=== PATIENT | male | born 1955 | race Caucasian/White ===

== ENCOUNTER 2016-12-21 17:24 | Emergency (ER) | payer BC ==
[2016-12-21] MEDS ORDERED: MORPHINE SULFATE 4 MG/ML SYRINGE IV STA (17:36)
--- NOTE | 2016-12-21 17:46 | ED ---
General Adult HPI - General Stated complaint: Back Pain Time Seen by Provider: 12/21/16 17:27 Source: RN notes reviewed - History of Present Illness Initial comments: 61 yo male presents to the ER with cc of right hip and low back pain after a fall. Patient states that he went to stand up from the chair he felt a sharp back pain and then he fell. Patient states that he was getting up from the chair on the porch and he fell backwards onto his right side and hip area. Patient was unable to get up by himself after this fall and states certain positions cause him to have numbness and tingling to the right leg. Patient states there was no other injury from fall. Patient denies head injury. Patient denies loss of bowel or bladder function. Patient denies any nausea or vomiting or abdominal pain. Patient denies chest pain or SOB prior to the fall. Patient states his legs simply gave out. Patient does admit to chronic back pain with history of surgery. He was given morphine by EMS and states pain is about 5/10 constant. - Related Data Home Medications Medication Instructions Recorded Confirmed Aspirin 81 mg PO DAILY 12/30/13 09/06/15 Rosuvastatin [Crestor] 20 mg PO DAILY 12/30/13 09/06/15 Sertraline HCl 100 mg PO DAILY 12/30/13 09/06/15 Metoprolol Tartrate [Lopressor] 1 mg PO ONCE 09/06/15 09/06/15 Allergies Allergy/AdvReac Type Severity Reaction Status Date / Time No Known Allergies Allergy Unverified 12/21/16 17:49 Review of Systems ROS Statement: Those systems with pertinent positive or pertinent negative responses have been documented in the HPI. ROS Other: All systems not noted in ROS Statement are negative. Past Medical History Past Medical History: Chest Pain / Angina, CVA/TIA, Hyperlipidemia, Hypertension , Osteoarthritis (OA), Sleep Apnea/CPAP/BIPAP, Vascular Disorder Additional Past Medical History / Comment(s): uses CPAP, herniated disc in neck currently, TIA 1 yr. ago History of Any Multi-Drug Resistant Organisms: None Reported Past Surgical History: Appendectomy, Back Surgery, Orthopedic Surgery, Tonsillectomy Additional Past Surgical History / Comment(s): AILIN. CAROTID ENDARTERECTOMY, LEFT FEMUR ORIF, CERVICAL FUSION WITH PLATE Past Anesthesia/Blood Transfusion Reactions: Motion Sickness Smoking Status: Never smoker - Past Family History Father Family Medical History: Cancer, Coronary Artery Disease (CAD), Vascular Disorder Additional Family Medical History / Comment(s): LYMPHOMA Mother Family Medical History: Diabetes Mellitus General Exam General appearance: alert, in no apparent distress Eye exam: Present: normal appearance, PERRL, EOMI. Absent: scleral icterus, conjunctival injection, periorbital swelling ENT exam: Present: normal exam, mucous membranes moist Neck exam: Present: normal inspection. Absent: tenderness, meningismus, lymphadenopathy Respiratory exam: Present: normal lung sounds bilaterally. Absent: respiratory distress, wheezes, rales, rhonchi, stridor Cardiovascular Exam: Present: regular rate, normal rhythm, normal heart sounds. Absent: systolic murmur, diastolic murmur, rubs, gallop, clicks Right Hip exam: Present: normal inspection, tenderness (throught the pelvis into right hip area). Absent: full ROM (limited on right due to pain), swelling, abrasion, laceration, ecchymosis, deformity Upper Leg exam: Present: normal inspection. Absent: tenderness, swelling Knee exam: Present: normal inspection, full ROM. Absent: tenderness, swelling Neurovascular tendon exam: Absent: no vascular compromise Back exam: Present: normal inspection, full ROM, tenderness (lower lumbar region ), paraspinal tenderness (to the right), vertebral tenderness (lower lumbar). Absent: rash noted Neurological exam: Present: alert, oriented X3 Course Vital Signs 12/21/16 17:44 Temperature 97 F L Pulse Rate 68 Respiratory 16 Rate Blood Pressure 120/57 O2 Sat by Pulse 95 Oximetry - Reevaluation(s) Reevaluation #1: 12/21/16 19:07 Patient states he is feeling much better. He was able to get up he was able to walk around the room. He states that the pain has improved. Medical Decision Making - Medical Decision Making 61 yo male presents to the ER with cc of low back pain. Patient does suffer from some chronic back pain. Patient states he sees Dr. Wadsworth. This chronic back pain flareup which caused him to fall. This time x-rays do not show any acute process. At this time the patient is feeling better. We will discharge him home. He states he has muscle relaxers and pain medication for home. We discussed return parameters and all his questions. The family patient stated he understood the plan. They will be discharged. - Radiology Data Radiology results: report reviewed, image reviewed Disposition Clinical Impression: Chronic low back pain, Fall, Contusion of right hip Disposition: HOME SELF-CARE Condition: Stable Instructions: Chronic Back Pain (ED) Additional Instructions: Please use medication as discussed. Please follow up with family doctor if symptoms have not improved over the next two days. Please return to the emergency room if your symptoms increase or worsen or for any other concerns. Referrals: Joaquín Duke MD [Primary Care Provider] - 1-2 days Sierra Wadsworth DO [Doctor of Osteopathic Medicine] - 1-2 days Time of Disposition: 19:10
[2016-12-21 17:50] VITALS: RESP 16
--- NOTE | 2016-12-21 18:50 | XR ---
EXAMINATION TYPE: XR lumbar spine 2 or 3V DATE OF EXAM: 12/21/2016 COMPARISON: NONE HISTORY: Pain TECHNIQUE: 3 views FINDINGS: There is no fracture. No focal skeletal finding or focal soft tissue findings. Multilevel discogenic degenerative spine changes are noted, in addition to multilevel facet osteoarth ritis changes. The degenerative disc findings are most advanced at the L3-4 level where there are the y are moderately marked in degree and associated with 3 mm retrolisthesis of L3 upon L4. No other spi nal malalignment. IMPRESSION: No acute process, but multilevel degenerative disc and facet changes are noted.
--- NOTE | 2016-12-21 18:54 | XR ---
EXAMINATION TYPE: XR Hip RT and AP Pelvis DATE OF EXAM: 12/21/2016 COMPARISON: NONE HISTORY: Pain, no injury TECHNIQUE: A single AP view of the pelvis is obtained. Two views of the right hip are obtained. FINDINGS: The bones and joints and soft tissues are unremarkable. IMPRESSION: NO ACUTE PROCESSES. NO FOCAL FINDINGS.
[2016-12-21] MEDS ORDERED: ORPHENADRINE 30 MG/ML 2 ML VIAL IM STA (19:11)
[2016-12-21 19:12] VITALS: BP 167/72; PULSE 62; TEMP 97.7
== END 2016-12-21 19:29 | disposition home or self-care (01) ==
LOC: EC 17:24
DX: S70.01XA Contusion of right hip, initial encounter (principal); M54.5 Low back pain; G89.29 Other chronic pain; E78.5 Hyperlipidemia, unspecified; G47.30 Sleep apnea, unspecified; I10 Essential (primary) hypertension; Z99.89 Dependence on other enabling machines and devices; Z86.73 Personal history of transient ischemic attack (TIA), and cerebral infarction without residual deficits; Z98.890 Other specified postprocedural states; Z79.82 Long term (current) use of aspirin; Z79.899 Other long term (current) drug therapy; W07.XXXA Fall from chair, initial encounter; Y92.009 Unspecified place in unspecified non-institutional (private) residence as the place of occurrence of the external cause
CPT/HCPCS: 96372 ×2; 96374 ×2; 99284 ×2; 72100; 73502; J2270; J2360

== ENCOUNTER → 2016-12-26 | Outpatient (CLI) | payer BC ==
[2016-12-26 11:10] LABS: Blood Urea Nitrogen 22 mg/dL (9-20); Non-African American GFR(MDRD) >60 (>60 ml/min/1.73 sqM)
== END ==
LOC: LABWHC1 10:38
PROVIDERS: ATTEND Physician Assistant
DX: Z01.812 Encounter for preprocedural laboratory examination (principal); N28.9 Disorder of kidney and ureter, unspecified
CPT/HCPCS: 36415; 82565; 84520

== ENCOUNTER → 2021-05-06 | Outpatient (CLI) | payer OTHER ==
--- NOTE | 2021-05-06 07:42 | MR ---
MRI CERVICAL SPINE: CLINICAL HISTORY: Cervicalgia TECHNIQUE: Multiplanar, multisequence imaging of the cervical spine is performed without IV contrast. COMPARISON: None. FINDINGS: Sagittal images of the cervical spine show the craniocervical junction to appear within nor mal limits. The cervical and upper thoracic spinal cord is normal in caliber and signal. Alignment i s straightened with grade 1 retrolisthesis C3 on C4. There is artifact from surgical change C4-C7 le vels with artificial disc material and anterior fusion plate. Moderate disc space narrowing C3-C4 lev el. Vertebral body heights and disc space heights otherwise maintained above and below surgical level s. The bone marrow signal intensity is within normal limits. Axial images at C2-C3 level show lobulated posterior disc protrusion mildly effacing the anterior the yohana sac, asymmetric mild right-sided neural foraminal narrowing is present. Axial images at C3-C4 levels from broad-based spur disc complex effacing the anterior thecal sac and causing moderate to advanced right greater than left bilateral neural foraminal narrowing. Axial images at C4-C5, C5-C6, and C6-C7 levels show artifact from surgical change, there is mild left -sided neural foraminal narrowing at C5-C6 level due to bony projection, there is [id number] le ft-sided neural foraminal narrowing at C6-C7 level due to bony projection/27. There is mild effacemen t anterior thecal sac due to posterior bony projection axial image 26 corresponding to sagittal image 9. Axial images at C7-T1 level appear within normal limits. IMPRESSION: Postsurgical changes C4-C7 level with straightened alignment. Spondylolisthesis and degen erative change C3-C4 level noted as detailed above.
--- NOTE | 2021-05-06 13:04 | MR ---
EXAMINATION TYPE: MR shoulder LT wo con DATE OF EXAM: 05/06/2021 COMPARISON: None HISTORY: Cervicalgia, Pain in left shoulder TECHNIQUE: Multiplanar, multisequence imaging of the left shoulder is performed without contrast. FINDINGS: Rotator Cuff: There is abnormal thickening, abnormal increased intrinsic signal present within the ro tator cuff, fluid signal is present at the level of the foot plate, insertion of the rotator cuff, co zenobia image #15, sagittal image 5 Acromioclavicular Joint: Acromioclavicular joint arthropathy is present, there is fluid signal in the subacromial subdeltoid bursa. Distal acromial spur is present, some mass effect on the rotator cuff tendon is suspected, coronal image #15 Glenohumeral Joint: Intact Labrum: The labrum appears grossly intact given limitation of non-arthrogram study. Biceps Tendon: There is fluid signal along the long head of biceps tendon which shows a normal positi on in the bicipital groove Bone marrow signal: Some reactive marrow signal change present at the acromioclavicular joint Other: Minimal joint effusion IMPRESSION: Findings may represent an partial undersurface tear of the rotator cuff there is tendinosis, possible tendinopathy change. Correlate for impingement.
== END | disposition home or self-care (01) ==
LOC: RADMRIMAIN 05:57
PROVIDERS: ATTEND Orthopaedic Surgery Orthopaedic Surgery of the Spine
DX: M75.42 Impingement syndrome of left shoulder (principal); M75.22 Bicipital tendinitis, left shoulder; M47.812 Spondylosis without myelopathy or radiculopathy, cervical region; M79.12 Myalgia of auxiliary muscles, head and neck; M25.78 Osteophyte, vertebrae; S16.1XXD Strain of muscle, fascia and tendon at neck level, subsequent encounter; M47.816 Spondylosis without myelopathy or radiculopathy, lumbar region; M51.36 Other intervertebral disc degeneration, lumbar region
CPT/HCPCS: 72141

== ENCOUNTER 2021-06-08 06:12 | Day surgery (SDC) | payer OTHER ==
[2021-06-01 13:20] VITALS: BMI 29.4
[~2021-06-08 06:12] MED LIST: DEXAMETHASONE SOD PHOSPHATE 4 MG/ML 1 ML VIAL IV ONE; LIDOCAINE 1% (10MG/ML) FOR IV START INTRADERMA PRN; ONDANSETRON 4 MG/2 ML VIAL IVP ONE; ceFAZolin 1,000 MG in SODIUM CHLORIDE 0.9% IRRIGATIO 1,000 ML IRRIGATION PRN
[2021-06-08] MEDS: LACTATED RINGERS 1,000 ML IV SCH (07:02)
[2021-06-08] MEDS ORDERED: GLYCOPYRROLATE 0.2 MG/ML 2 ML VIAL ONE (07:20)
[2021-06-08] MEDS ORDERED: LIDOCAINE 1% INJ 10MG/ML (20 ML MDV) ONE (07:20)
[2021-06-08] MEDS ORDERED: SUCCINYLCHOLINE CHLORIDE 100 MG/5 ML SYR IV ONE (07:20)
[2021-06-08] MEDS ORDERED: fentaNYL (PF) 50 MCG/ML 2 ML AMP ONE (07:20)
[2021-06-08] MEDS ORDERED: MIDAZOLAM 2 MG/2 ML VIAL ONE (07:20)
[2021-06-08] MEDS ORDERED: PROPOFOL 10 MG/ML 20 ML VIAL IV ONE (07:20)
[2021-06-08] MEDS ORDERED: NEOSTIGMINE 1 MG/ML 10 ML VIAL ONE (07:20)
[2021-06-08] MEDS ORDERED: PHENYLEPHRINE-0.9% NACL SYG 1,000 MCG/10 ML SYRINGE ONE (07:20)
[2021-06-08] MEDS ORDERED: ROCURONIUM 10 MG/ML (5 ML VIAL) IV ONE (07:20)
[2021-06-08] MEDS ORDERED: HYDROmorphone (PF) 1 MG/ML ONE (07:20)
[2021-06-08] MEDS ORDERED: DEXAMETHASONE SOD PHOSPHATE 10 MG/ML 1 ML VIAL ONE (07:20)
[2021-06-08] MEDS ORDERED: BUPIVACAIN-EPI 0.25%-1:200,000 30 ML VIAL SQ ONE ×2 (07:54)
[2021-06-08] MEDS ORDERED: THROMBIN (BOVINE) 5,000 UNIT VIAL MISCELLANE ONE (07:54)
[2021-06-08] MEDS ORDERED: GELATIN SPONGE,ABSORB (SMALL) 1 EACH SPONGE MISCELLANE ONE (07:56)
--- NOTE | 2021-06-08 08:38 | XR ---
Cervical spine HISTORY: Needle placement Single lateral view the cervical spine submitted Comparison CTA of the neck 12/26/2013 Endotracheal tube is in place. Patient shows anterior cervical fusion and discectomy changes at the l evel of C4-C7, lower cervical spine is not well seen. There is a needle present near intervertebral d isc space C3-4. Loss of disc height is present at C3-4 with associated spondylosis, retrolisthesis gr nery 1. Facet arthropathy changes are present. There are overlying artifacts. IMPRESSION: Orthopedic localization.
[2021-06-08] MEDS ORDERED: HYDROcodone/APAP 5-325MG 1 EACH TAB PO PRN (09:11)
[2021-06-08] MEDS ORDERED: BENZOCAINE/MENTHOL LOZENG 1 EACH LOZENGE MUCOUS MEM PRN (09:11)
[2021-06-08] MEDS ORDERED: HYDROmorphone 0.5 MG/0.5 ML SYRINGE IVP PRN (09:11)
[2021-06-08] MEDS ORDERED: CYCLOBENZAPRINE 10 MG TAB PO PRN (09:11)
[2021-06-08] MEDS ORDERED: ONDANSETRON 4 MG/2 ML VIAL IVP PRN (09:11)
--- NOTE | 2021-06-08 09:21 | P.OP ---
Date of Procedure: 06/08/21 Preoperative Diagnosis: Herniated nucleus pulposis C3 4, neck pain, upper extremity radiculopathy, adjacent level disc degeneration C3 4, history of prior anterior cervical decompression and fusion C4 5 C5 6 C6 7 with retained hardware Postoperative Diagnosis: Same Anesthesia: GETA Pathology: none sent Condition: stable Disposition: PACU Description of Procedure: BRIEF OPERATIVE NOTE Preoperative Diagnosis:Herniated nucleus pulposis C3 4, neck pain, upper extremity radiculopathy, adjacent level disc degeneration C3 4, history of prior anterior cervical decompression and fusion C4 5 C5 6 C6 7 with retained hardware Postoperative Diagnosis:Herniated nucleus pulposis C3 4, neck pain, upper extremity radiculopathy, adjacent level disc degeneration C3 4, history of prior anterior cervical decompression and fusion C4 5 C5 6 C6 7 with retained hardware Procedure: Anterior cervical decompression with discectomy and fusion C3 4 Placement of interbody graft with attached anterior cervical plate ranging C3 and 4 Local autogenous bone grafting Application of anterior cervical screws through the plate at C3 4 Surgeon: Dr. Wadsworth Vc++ Developer: Joseph Covington is present throughout the entire the case persistence during positioning, dissection, exposure, visualization, and all crucial elements of the case as well as closure. Anesthesia: General anesthesia Estimated blood loss: Approximately 20 mL Complications: None apparent Components implanted: K2M Astrid standalone anterior cervical cage with screws measuring 12 mm in the interbody device measuring 7 mm x 8 lordosis Disposition: To recovery room in good stable condition. OPERATIVE INDICATIONS The patient has had long-standing issues in their neck and upper extremities. About 10 years ago he had gone through anterior cervical decompression with discectomy and fusion C4 5 C5 6 and C6 7 and had excellent results with that for his neck pain and upper extremity radiculopathy however over the past year he has been having some worsening of his symptoms with significant worsening over the past several months. He is found have significant adjacent level degeneration at C3 4 with disc herniation stenosis and radiculopathy which correlated well with his neck and upper extremity and MRI findings. The patient has been through conservative treatment. He is not having any lasting benefit despite aggressive conservative care. We discussed various treatment options including surgery, and the patient wishes to proceed with surgery We discussed the risk, patient's alternatives and benefits of surgery including but not limited to, risk of bleeding risk of infection, risk of need for further surgery, risk of decreased, loss of motion, muscle function, malunion nonunion, hardware failure, nerve damage, paralysis, heart attack, and . OPERATIVE SUMMARY After discussing all the risks, patient alternatives and benefits at length, the patient elected to proceed with surgical intervention, signed informed consent, and presented for their procedure. The patient was seen and examined in the preoperative holding area and the surgical site was marked. The patient was given antibiotics and brought to the operating room. The patient was positioned on the operating room table in a supine position being careful to pad any bony prominences and pressure points. The patient was sedated and intubated by anesthesia in standard fashion. Once the airway and C- spine were stabilized the patient's arms were padded and tucked at her side, with her shoulders gently taped. The head was placed in a donut pad with the neck in good neutral alignment and position. We were careful to maintain the patient's cervical spine and good neutral alignment and position throughout. The patient was prepped and draped in a normal standard fashion. An appropriate timeout and keystone protocol performed. We were able to proceed with the quintero rgery. The local wound area was infiltrated with local anesthetic. An incision was made transversely approximately 2-1/2 cm over the appropriate levels above his prior incision at approximately C4. Dissection was taken down subcutaneously to the level of the platysma which was split in line with its fibers. Dissection was taken with a carotid approach, with the trachea and esophagus medial and the carotid sheath laterally. We dissected down to the anterior surface of the vertebral bodies. I was able to expose the top portion of the prior plate at C4 appropriately. It was examined and found to be intact and stable. Intraoperative x-ray was taken which showed a marker at the appropriate level of C3 4 with the plate and screws intact at C4 down to C7. With the appropriate level positively confirmed, we were able to proceed with discectomy at the appropriate levels at C3 4. All of the operative levels were exposed appropriately. The patient had all their twitches back, and there was no evidence of recurrent laryngeal issue. The wound was copiously irrigated and suctioned dry as had been done periodically throughout the case. At the appropriate level of C3 4, I took down a number of large anterior osteophytes and then established an annulotomy with an 11 blade scalpel. A discectomy was performed with a combination of pituitary rongeurs, curettes, a high-speed bur, and Kerrison rongeurs. Any bony fragments were removed and cleaned and prepared for local autogenous bone grafting for use later in the case. Large posterior osteophytes were removed as well The posterior longitudinal ligament was taken down as were any posterior osteophytes. This gave good central and bilateral foraminal decompression. There is no evidence of any dural tear or leak. The endplates were prepared with a high-speed bur. With the endplates in good parallel position, I was able to size for the appropriate size interbody graft. The wound was irrigated and suctioned dry . We chose the appropriate standalone peek cage graft which was filled with local autogenous and bio for bone graft. The cage with the graft was prepared and malleted into position. It had good alignment and position with the anterior surface flush with the anterior surface of the vertebral bodies. We attached the appropriate jig and starting awls to establish screw holes through the attached plate for C3 and C4. Screw holes were established with a hand drill and drill guide. Screws were placed in good alignment and position with excellent bony purchase. They were seated under the locking device. The construct was checked and found to be stable. Intraoperative x-ray was taken which showed good alignment and position of the implants at the appropriate levels. There was no evidence of any dural tear or leak. Good hemostasis was maintained. The wound was copiously irrigated and suctioned dry as had been done periodically throughout the case. The platysma was closed with absorbable suture. The subcutaneous tissue was closed. The subcuticular tissue was closed with absorbable suture. The wound was cleaned and dried and dressed appropriately. A soft cervical collar was placed appropriately. The patient was woken up by anesthesia, extubated, transferred back gently to their hospital bed and brought to the recovery room in good stable condition. The patient will be admitted to the hospital for appropriate postoperative care, medical management and monitoring. We will continue to follow them closely about the postoperative course.
[2021-06-08] MEDS ORDERED: ENALAPRILAT 1.25 MG/ML 1 ML VIAL IVP ONE (10:09)
[2021-06-08] MEDS: HYDROmorphone 0.5 MG/0.5 ML SYRINGE IVP PRN ×3 (10:14→14:35)
[2021-06-08] MEDS ORDERED: LACTATED RINGERS 1,000 ML IV ONE ×3 (10:15)
--- NOTE | 2021-06-08 12:29 | XR ---
Cervical spine HISTORY: Status post anterior cervical fusion correlation to prior exam same dated earlier time Interval placement of screws, intervertebral spacing block across the anterior aspect of the C3-4 int erspace. Persistent retrolisthesis grade 1 C3-4. Alignment is thought to be stable. No other signific ant interval change. IMPRESSION: Orthopedic follow-up as described.
[2021-06-08] MEDS: SODIUM CHLORIDE 0.9% 1,000 ML IV SCH (15:38)
[2021-06-09] MEDS: SODIUM CHLORIDE 0.9% 1,000 ML IV SCH (00:43)
[2021-06-09] MEDS: LACTATED RINGERS 1,000 ML IV SCH (07:16)
[2021-06-09] MEDS ORDERED: BENZOCAINE SPRAY 1 CAN MUCOUS MEM PRN (08:09)
--- NOTE | 2021-06-09 08:28 | P.DS ---
Providers Date of admission: 06/08/21 Attending physician: Sierra Wadsworth Primary care physician: [facility] Course: The patient presented on the day of admission as per their operative note. He has a disc herniation with severe stenosis C3 4 and underwent anterior cervical approach with discectomy and fusion as per his operative note. His history of prior anterior cervical discectomy and fusion C4 to 7 in the past. He feels his arms are doing well. His neck has some tightness around it when he swallows while wearing his brace but otherwise he feels pretty good. He is tolerating his soft diet. He is mobile ambulatory and voiding freely. Physical Exam The incision site is clean dry and intact. There is no erythema no drainage. There is no purulence no evidence of infection. His neck is soft. There is no tension at his neck. There is no purulence. The dressing is clear. Abdomen soft and nontender. Chest has good excursion with deep inspiration and expiration. The patient has active and passive range of motion intact at the upper and lower extremities. There is no acute change in neurologic status. He has good sustained strength and is bilateral upper extremities Hospital Course Postoperative day #1 status post anterior cervical decompression with discectomy and fusion C3 4 for his disc herniation with cervical stenosis and upper extremity radiculopathy. Patient is doing well. The patient has been making good progress postoperatively. They have completed the prophylactic antibiotics without any signs or symptoms of infection. The patient has been able to advance their diet, and is tolerating diet adequately. The pain was initially controlled with IV medications and is now controlled appropriately with oral medications. The patient has been able to increase their mobilization. The patient has progressed appropriately. It is okay for him to remove his collar. He continues to for comfort. He has been tolerating his diet adequately but would like some spray for his neck and I think that is okay. I think they are in good stable condition for discharge today. They will be sent home with appropriate prescriptions. I answered their questions to the best of my ability in a language that they can understand and they are agreeable with the plan. They will follow up as directed in approximately 2 weeks or sooner if he is having any problems. Patient Condition at Discharge: Good Plan - Discharge Summary Discharge Rx Participant: Yes New Discharge Prescriptions: New HYDROcodone/APAP 5-325MG [[place] 5] 1 each PO Q6HR PRN #28 tab PRN Reason: Pain No Action Aspirin 81 mg PO DAILY Metoprolol Tartrate [Lopressor] 25 mg PO DAILY Escitalopram Oxalate [Lexapro] 20 mg PO DAILY Atorvastatin Calcium [Lipitor] 40 mg PO DAILY lisinopriL [Zestril] 2.5 mg PO DAILY Discharge Medication List Aspirin 81 mg PO DAILY 12/30/13 [History] Metoprolol Tartrate [Lopressor] 25 mg PO DAILY 09/06/15 [History] Atorvastatin Calcium [Lipitor] 40 mg PO DAILY 06/01/21 [History] Escitalopram Oxalate [Lexapro] 20 mg PO DAILY 06/01/21 [History] lisinopriL [Zestril] 2.5 mg PO DAILY 06/01/21 [History] HYDROcodone/APAP 5-325MG [[place] 5] 1 each PO Q6HR PRN #28 tab 06/08/21 [Rx] Follow up Appointment(s)/Referral(s): Sierra Wadsworth DO [Doctor of Osteopathic Medicine] - 2 Weeks Activity/Diet/Wound Care/Special Instructions: Keep site clean. May shower with waterproof Tegaderm intact. Do not soak in a tub. After 72 hours postoperatively, patient May remove dressing and then may shower with area uncovered. Leave glue intact and allow it to fray off on its own. May ambulate as tolerated. Avoid heavy or rigorous activity. No repetitive bending twisting or lifting. No overhead work. Discharge Disposition: HOME SELF-CARE
[2021-06-09] MEDS ORDERED: METOPROLOL TARTRATE 25 MG TAB PO SCH (09:00)
[2021-06-09] MEDS ORDERED: ESCITALOPRAM 20 MG TAB PO SCH (09:00)
[2021-06-09] MEDS ORDERED: ASPIRIN 81 MG PO SCH (09:00)
[2021-06-09] MEDS ORDERED: ATORVASTATIN 40 MG TAB PO SCH (09:00)
[2021-06-09 09:33] VITALS: BP 151/82; PULSE 90; RESP 17; TEMP 98.3
== END 2021-06-09 11:22 | disposition home or self-care (01) ==
LOC: OR 06:12 → 4SSUR 09:25 → OR 06-09 11:22
PROVIDERS: ATTEND Orthopaedic Surgery Orthopaedic Surgery of the Spine
DX: M50.11 Cervical disc disorder with radiculopathy, high cervical region (principal); M25.78 Osteophyte, vertebrae; M47.22 Other spondylosis with radiculopathy, cervical region; I10 Essential (primary) hypertension; E78.2 Mixed hyperlipidemia; G47.33 Obstructive sleep apnea (adult) (pediatric); Z20.822 Contact with and (suspected) exposure to COVID-19; H54.61 Unqualified visual loss, right eye, normal vision left eye; F32.9 Major depressive disorder, single episode, unspecified; R63.5 Abnormal weight gain; Z86.73 Personal history of transient ischemic attack (TIA), and cerebral infarction without residual deficits; Z97.3 Presence of spectacles and contact lenses; Z98.1 Arthrodesis status; Z97.2 Presence of dental prosthetic device (complete) (partial); Z98.890 Other specified postprocedural states; Z83.3 Family history of diabetes mellitus; Z87.81 Personal history of (healed) traumatic fracture; Z80.9 Family history of malignant neoplasm, unspecified; Z82.49 Family history of ischemic heart disease and other diseases of the circulatory system; Z80.7 Family history of other malignant neoplasms of lymphoid, hematopoietic and related tissues; Z79.82 Long term (current) use of aspirin; Z79.891 Long term (current) use of opiate analgesic; Z79.899 Other long term (current) drug therapy
CPT/HCPCS: 87635; 72020; 22551; 20931; 20936; C1713; C1762; J2250; J1100; J2710; J0690 ×2; J2405; J2001; J3010; J1170 ×2; J2370; J0330; J2704